=== PATIENT | male | born 1985 | race American Indian/Alaskan Native ===

== ENCOUNTER 2019-02-11 19:35 | Observation (INO) | payer SELFPAY ==
[2019-02-11] MEDS ORDERED: Ketorolac 30 MG/ML SDV IVPUSH ONE (20:24)
[2019-02-11] MEDS ORDERED: Sodium Chloride 0.9% 1,000 ML IV ONE ×2 (20:24→22:42)
[2019-02-11] MEDS ORDERED: Morphine 2 MG/ML Syringe IVPUSH ONE (20:33)
[2019-02-11] MEDS ORDERED: Ondansetron 4 MG/2 ML SDV IVPUSH ONE (20:42)
--- NOTE | 2019-02-11 20:42 | EDM.PDOC ---
ED HPI GENERAL MEDICAL PROBLEM - General Chief Complaint: Abdominal Pain Stated Complaint: PT HAS STOMACH PAINS Time Seen by Provider: 02/11/19 19:58 Source of Information: Reports: Patient History Limitations: Reports: No Limitations - History of Present Illness INITIAL COMMENTS - FREE TEXT/NARRATIVE: HISTORY AND PHYSICAL: History of present illness: Patient is a 33-year-old male presents to the ED today with concern of mid to lower abdominal pain 2-3 days. Patient states he's had bouts of pancreatitis in the past due to alcohol intake. Patient states he has not had a pancreatic attack in several years. Patient states his pain today is somewhat similar to his pancreatic attacks but is more painful in severity. Patient states for the past 2 days he has not been able to eat and drink. He states he continues to try but vomits anytime he does try to intake any fluids or food. Patient rates his discomfort a 9 out of 10. Patient states he has not been able to keep anything down for his symptoms. Patient denies any other symptoms or concerns at this time. Patient denies fever, chills, chest pain, shortness of breath, or cough. Denies headache, neck stiff ness, change in vision, syncope, or near syncope. Denies diarrhea, constipation, or dysuria. Has not noted any blood in urine or stool. Review of systems: As per history of present illness and below otherwise all systems reviewed and negative. Past medical history: As per history of present illness and as reviewed below otherwise noncontributory. Surgical history: As per history of present illness and as reviewed below otherwise noncontributory. Social history: See social history for further information Family history: As per history of present illness and as reviewed below otherwise noncontributory. Physical exam: General: Patient is alert, oriented, and in no acute distress. Patient sitting comfortably on exam table. HEENT: Atraumatic, normocephalic, pupils equal and reactive bilaterally, negative for conjunctival pallor or scleral icterus, mucous membranes dry, TMs normal bilaterally, throat clear, neck supple, nontender, trachea midline. No drooling or trismus noted. No meningeal signs. No hot potato voice noted. Lungs: Clear to auscultation, breath sounds equal bilaterally, chest nontender. Heart: S1S2, regular rate and rhythm without overt murmur Abdomen: Exam of abdomen is limited due to pain. Severe pain with palpation of the mid abdomen and lower abdomen with guarding. Obese, Soft, nondistended. Negative for masses or hepatosplenomegaly. Negative for costovertebral tenderness. Pelvis: Stable nontender. Genitourinary: Deferred. Rectal: Deferred. Skin: Intact, warm, dry. No lesions or rashes noted. Extremities: Atraumatic, negative for cords or calf pain. Neurovascular unremarkable. Neuro: Awake, alert, oriented. Cranial nerves II through XII unremarkable. Cerebellum unremarkable. Motor and sensory unremarkable throughout. Exam nonfocal. Notes: Dr. Fonseca verbally involved in patient care. Dr. Aguilar consult on patient and will admit to observation. Voices understanding and is agreeable to plan of care. Denies any further questions or concerns at this time. Diagnostics: CBC, CMP, UA, lipase, amylase, abdominal pelvic CT, EKG, Ammonia, PT/INR Therapeutics: Normal saline, morphine, Toradol, Zofran, Ativan Impression: Abdominal pain Elevated bilirubin cannot r/o stone Transaminitis, unspecified Proteinuria, unspecified Renal insufficiency, unspecified Plan: 1. Admit to observation to Dr. Aguilar. Definitive disposition and diagnosis as appropriate pending reevaluation and review of above. abdomen Pain Score (Numeric/FACES): 7 - Related Data Allergies Allergy/AdvReac Type Severity Reaction Status Date / Time No Known Allergies Allergy Verified 02/11/19 20:21 Home Meds: Home Meds Lisinopril 5 mg PO DAILY 03/14/18 [History] Insulin Aspart [NovoLOG] 30 unit SQ TIDAC 02/11/19 [History] Insulin Detemir [Levemir] 40 unit SUBCUT BID 02/11/19 [History] Past Medical History HEENT History: Reports: Impaired Vision Cardiovascular History: Reports: None Respiratory History: Reports: None Gastrointestinal History: Reports: Pancreatitis, Other (See Below) Other Gastrointestinal History: liver damage Genitourinary History: Reports: None Musculoskeletal History: Reports: None Neurological History: Reports: None Psychiatric History: Reports: None Endocrine/Metabolic History: Reports: Diabetes, Type II Hematologic History: Reports: None Immunologic History: Reports: None Oncologic (Cancer) History: Reports: None Dermatologic History: Reports: None - Infectious Disease History Infectious Disease History: Reports: Chicken Pox - Past Surgical History Head Surgeries/Procedures: Reports: None HEENT Surgical History: Reports: None Cardiovascular Surgical History: Reports: None Respiratory Surgical History: Reports: None GI Surgical History: Reports: None Male Surgical History: Reports: None Endocrine Surgical History: Reports: None Neurological Surgical History: Reports: None Musculoskeletal Surgical History: Reports: None Oncologic Surgical History: Reports: None Dermatological Surgical History: Reports: None Social & Family History - Family History Family Medical History: Noncontributory - Caffeine Use Caffeine Use: Reports: None ED ROS GENERAL - Review of Systems Review Of Systems: ROS reveals no pertinent complaints other than HPI. ED EXAM, GENERAL - Physical Exam Exam: See Below (See dictation) Course - Vital Signs Last Recorded V/S: Last Vital Signs Temp 35.7 C 02/11/19 20:13 Pulse 94 02/11/19 23:09 Resp 20 02/11/19 23:09 BP 129/72 02/11/19 23:09 Pulse Ox 96 02/11/19 23:09 - Orders/Labs/Meds Orders: Active Orders 24 hr Category Date Time Status Admission Status [Patient Status] [ADT] Stat ADT 02/12/19 00:00 Ordered EKG Documentation Completion [RC] STAT Care 02/11/19 20:33 Active CULTURE URINE [RM] Stat Lab 02/11/19 20:45 Received Labs: Laboratory Tests 02/11/19 02/11/19 02/11/19 Range/Units 20:45 21:00 21:00 WBC 9.88 (4.0-11.0) K/uL RBC 5.60 (4.50-5.90) M/uL Hgb 18.1 H (13.0-17.0) g/dL Hct 51.5 H (38.0-50.0) % MCV 92.0 (80.0-98.0) fL MCH 32.3 H (27.0-32.0) pg MCHC 35.1 (31.0-37.0) g/dL RDW Std Deviation 44.0 (28.0-62.0) fl RDW Coeff of Juan Carlos 13 (11.0-15.0) % Plt Count 257 (150-400) K/uL MPV 10.00 (7.40-12.00) fL Neut % (Auto) 81.4 H (48.0-80.0) % Lymph % (Auto) 13.0 L (16.0-40.0) % [place] % (Auto) 4.9 (0.0-15.0) % Eos % (Auto) 0.1 (0.0-7.0) % Baso % (Auto) 0.6 (0.0-1.5) % Neut # (Auto) 8.1 H (1.4-5.7) K/uL Lymph # (Auto) 1.3 (0.6-2.4) K/uL Warrick # (Auto) 0.5 (0.0-0.8) K/uL Eos # (Auto) 0.0 (0.0-0.7) K/uL Baso # (Auto) 0.1 (0.0-0.1) K/uL Nucleated RBC % 0.0 /100WBC Nucleated RBCs # 0 K/uL INR Sodium 138 (136-148) mmol/L Potassium 4.9 (3.5-5.1) mmol/L Chloride 95 L (98-107) mmol/L Carbon Dioxide 23.9 (21.0-32.0) mmol/L BUN 8 (7.0-18.0) mg/dL Creatinine 1.6 H (0.8-1.3) mg/dL Est Cr Clr Drug Dosing 75.64 mL/min Estimated GFR (MDRD) 49.7 ml/min Glucose 299 H (74-106) mg/dL Calcium 9.5 (8.5-10.1) mg/dL Total Bilirubin 1.3 H (0.2-1.0) mg/dL AST 170 H (15-37) IU/L ALT 210 H (14-63) IU/L Alkaline Phosphatase 142 H (46-116) U/L Ammonia (19-54) ug/dL Total Protein 9.1 H (6.4-8.2) g/dL Albumin 4.2 (3.4-5.0) g/dL Globulin 4.9 H (2.6-4.0) g/dL Albumin/Globulin Ratio 0.9 (0.9-1.6) Amylase (25-115) U/L Lipase 67 L (73-393) U/L Urine Color YELLOW Urine Appearance CLEAR Urine pH 6.0 (5.0-8.0) Ur Specific [place] >= 1.030 (1.001-1.035) Urine Protein >=300 H (NEGATIVE) mg/dL Urine Glucose (UA) 100 H (NEGATIVE) mg/dL Urine Ketones 15 H (NEGATIVE) mg/dL Urine Occult Blood TRACE-LYSED H (NEGATIVE) Urine Nitrite POSITIVE H (NEGATIVE) Urine Bilirubin MODERATE H (NEGATIVE) Urine Ictotest NEGATIVE Urine Urobilinogen 1.0 (<2.0) EU/dL Ur Leukocyte Esterase NEGATIVE (NEGATIVE) Urine RBC 1-2 (0-2/HPF) Urine WBC 0-1 (0-5/HPF) Ur Epithelial Cells RARE (NONE-FEW) Urine Bacteria FEW (NEGATIVE) 02/11/19 02/11/19 02/11/19 Range/Units 21:00 21:00 23:20 WBC (4.0-11.0) K/uL RBC (4.50-5.90) M/uL Hgb (13.0-17.0) g/dL Hct (38.0-50.0) % MCV (80.0-98.0) fL MCH (27.0-32.0) pg MCHC (31.0-37.0) g/dL RDW Std Deviation (28.0-62.0) fl RDW Coeff of Juan Carlos (11.0-15.0) % Plt Count (150-400) K/uL MPV (7.40-12.00) fL Neut % (Auto) (48.0-80.0) % Lymph % (Auto) (16.0-40.0) % [place] % (Auto) (0.0-15.0) % Eos % (Auto) (0.0-7.0) % Baso % (Auto) (0.0-1.5) % Neut # (Auto) (1.4-5.7) K/uL Lymph # (Auto) (0.6-2.4) K/uL Warrick # (Auto) (0.0-0.8) K/uL Eos # (Auto) (0.0-0.7) K/uL Baso # (Auto) (0.0-0.1) K/uL Nucleated RBC % /100WBC Nucleated RBCs # K/uL INR 1.00 Sodium (136-148) mmol/L Potassium (3.5-5.1) mmol/L Chloride (98-107) mmol/L Carbon Dioxide (21.0-32.0) mmol/L BUN (7.0-18.0) mg/dL Creatinine (0.8-1.3) mg/dL Est Cr Clr Drug Dosing mL/min Estimated GFR (MDRD) ml/min Glucose (74-106) mg/dL Calcium (8.5-10.1) mg/dL Total Bilirubin (0.2-1.0) mg/dL AST (15-37) IU/L ALT (14-63) IU/L Alkaline Phosphatase (46-116) U/L Ammonia 53 (19-54) ug/dL Total Protein (6.4-8.2) g/dL Albumin (3.4-5.0) g/dL Globulin (2.6-4.0) g/dL Albumin/Globulin Ratio (0.9-1.6) Amylase 18 L (25-115) U/L Lipase (73-393) U/L Urine Color Urine Appearance Urine pH (5.0-8.0) Ur Specific [place] (1.001-1.035) Urine Protein (NEGATIVE) mg/dL Urine Glucose (UA) (NEGATIVE) mg/dL Urine Ketones (NEGATIVE) mg/dL Urine Occult Blood (NEGATIVE) Urine Nitrite (NEGATIVE) Urine Bilirubin (NEGATIVE) Urine Ictotest Urine Urobilinogen (<2.0) EU/dL Ur Leukocyte Esterase (NEGATIVE) Urine RBC (0-2/HPF) Urine WBC (0-5/HPF) Ur Epithelial Cells (NONE-FEW) Urine Bacteria (NEGATIVE) Meds: Medications Discontinued Medications Generic Name Dose Route Start Last Admin Trade Name Freq PRN Reason Stop Dose Admin Sodium Chloride 1,000 mls @ 999 mls/hr 02/11/19 20:24 02/11/19 21:02 Normal Saline IV 02/11/19 21:24 999 mls/hr BOLUS ONE Administration Sodium Chloride 1,000 mls @ 999 mls/hr 02/11/19 22:42 02/11/19 22:43 Normal Saline IV 02/11/19 23:42 999 mls/hr .Bolus ONE Administration Ketorolac Tromethamine 30 mg 02/11/19 20:24 02/11/19 21:02 Toradol IVPUSH 02/11/19 20:25 30 mg ONETIME ONE Administration Lorazepam 1 mg 02/11/19 21:56 02/11/19 22:07 Ativan IVPUSH 02/11/19 21:57 1 mg ONETIME ONE Administration Morphine Sulfate 2 mg 02/11/19 20:33 02/11/19 21:03 Morphine IVPUSH 02/11/19 20:34 2 mg ONETIME ONE Administration Ondansetron HCl 4 mg 02/11/19 20:42 02/11/19 21:03 Zofran IVPUSH 02/11/19 20:43 4 mg ONETIME ONE Administration Departure - Departure Time of Disposition: 00:08 Disposition: Home, Self-Care 01 Clinical Impression: Elevated bilirubin, Transaminitis, Renal insufficiency Abdominal pain Qualifiers: Abdominal location: unspecified location Qualified Code(s): R10.9 - Unspecified abdominal pain Proteinuria Qualifiers: Proteinuria type: unspecified Qualified Code(s): R80.9 - Proteinuria, unspecified - Discharge Information - My Orders Last 24 Hours: My Active Orders 02/11/19 20:33 EKG Documentation Completion [RC] STAT 02/11/19 20:45 CULTURE URINE [RM] Stat 02/12/19 00:00 Admission Status [Patient Status] [ADT] Stat - Assessment/Plan Last 24 Hours: My Active Orders 02/11/19 20:33 EKG Documentation Completion [RC] STAT 02/11/19 20:45 CULTURE URINE [RM] Stat 02/12/19 00:00 Admission Status [Patient Status] [ADT] Stat
[2019-02-11] MEDS ORDERED: LORazepam 2 MG/ML SDV IVPUSH ONE (21:56)
--- NOTE | 2019-02-11 23:03 | CT ---
INDICATION: Abdominal pain TECHNIQUE: CT abdomen and pelvis without contrast. COMPARISON: None. FINDINGS: Lower chest: Unremarkable. Liver: Diffusely decreased density of the liver consistent with fatty infiltration with focal sparing adjacent to the gallbladder fossa. Gallbladder and bile ducts: No stones or inflammation. No biliary dilatation. Pancreas: Unremarkable. No mass or inflammation. Spleen: Normal in size. No masses. Adrenal glands: Normal in size. No nodules. Kidneys: Normal in size. No masses, stones, or hydronephrosis. GI tract: The stomach is unremarkable. There are no dilated loops of large or small intestine. Appendix is normal in caliber without periappendiceal inflammation. Vasculature: Unremarkable. Pelvis: Unremarkable. No pelvic masses. Bones: Unremarkable for age. IMPRESSION: 1. No evidence of nephrolithiasis or hydronephrosis. 2. No dilated bowel or focal inflammation. 3. Fatty infiltration of the liver. Please note that all CT scans at this facility use dose modulation, iterative reconstruction, and/or weight-based dosing when appropriate to reduce radiation dose to as low as reasonably achievable. Dictated by Javy Lo MD @ Feb 11 2019 10:57PM Signed by Dr. Javy Lo @ Feb 11 2019 11:02PM
[2019-02-12] MEDS ORDERED: Ondansetron 4 MG/2 ML SDV IVPUSH PRN (00:50)
[2019-02-12] MEDS ORDERED: Morphine 2 MG/ML Syringe IVPUSH PRN (00:51)
[2019-02-12] MEDS ORDERED: Pantoprazole 40 MG in Sodium Chloride 0.9% 10 ML IVPUSH SCH ×4 (01:00)
[2019-02-12] MEDS: Sodium Chloride 0.9% 1,000 ML IV SCH ×2 (01:06→08:26)
[2019-02-12] MEDS ORDERED: Insulin Aspart 100 Units/ML 3 ML Pen SUBCUT SCH ×3 (06:00→11:30)
[2019-02-12 06:51] LABS: CHLORIDE,CL 102 mmol/L (98-107); SODIUM,NA 140 mmol/L (136-148)
[2019-02-12] MEDS: Insulin Aspart 100 Units/ML 3 ML Pen SUBCUT SCH ×3 (08:45→17:50)
[2019-02-12] MEDS ORDERED: Insulin Detemir 100 Units/ML 3 ML Pen SUBCUT SCH (09:00)
--- NOTE | 2019-02-12 13:38 | PCM.HP ---
H&P History of Present Illness - General Date of Service: 02/12/19 Admit Problem/Dx: Admission Diagnosis/Problem Admission Diagnosis/Problem Elevated liver enzymes - History of Present Illness Initial Comments - Free Text/Narative: 33 yo male with pmh of diabetes and alcoholic pancreatitis who presents with abdominal pain. Patient reports three day hsitory of epigastric abdominal pain, nausea and vomiting, It started after several days of heavy drinking. Patient reports on weekends he drinks 3/4 a liter of vodka and 8 beers a day. Days he is working he stats he does not drink. Patient reports if goes beyond 2 days of drinking he develops abdominal pain. CT of the abdomen reports fatty liver disease but no acute pathology. His lipase was 67, He had minimally elevated LFTs. abdomen Pain Score (Numeric/FACES): 4 - Related Data Allergies/Adverse Reactions: Allergies Allergy/AdvReac Type Severity Reaction Status Date / Time No Known Allergies Allergy Verified 02/11/19 20:21 Home Medications: Home Meds Lisinopril 5 mg PO DAILY 03/14/18 [History] Insulin Aspart [NovoLOG] 30 unit SQ TIDAC 02/11/19 [History] Insulin Detemir [Levemir] 40 unit SUBCUT BID 02/11/19 [History] Omeprazole Magnesium [Prilosec Otc] 20 mg PO DAILY #30 tablet. 02/12/19 [Rx] cephALEXin [Keflex] 500 mg PO BID #10 cap 02/12/19 [Rx] Past Medical History HEENT History: Reports: Impaired Vision Cardiovascular History: Reports: None Respiratory History: Reports: None Gastrointestinal History: Reports: Pancreatitis, Other (See Below) Other Gastrointestinal History: liver damage Genitourinary History: Reports: None Musculoskeletal History: Reports: None Neurological History: Reports: None Psychiatric History: Reports: None Endocrine/Metabolic History: Reports: Diabetes, Type II Other Endocrine/Metabolic History: on insulin Hematologic History: Reports: None Immunologic History: Reports: None Oncologic (Cancer) History: Reports: None Dermatologic History: Reports: None - Infectious Disease History Infectious Disease History: Reports: Chicken Pox - Past Surgical History Head Surgeries/Procedures: Reports: None HEENT Surgical History: Reports: None Cardiovascular Surgical History: Reports: None Respiratory Surgical History: Reports: None GI Surgical History: Reports: None Male Surgical History: Reports: None Endocrine Surgical History: Reports: None Neurological Surgical History: Reports: None Musculoskeletal Surgical History: Reports: None Oncologic Surgical History: Reports: None Dermatological Surgical History: Reports: None Social & Family History - Family History Family Medical History: Noncontributory - Tobacco Use Smoking Status *Q: Former Smoker Used Tobacco, but Quit: Yes Month/Year Tobacco Last Used: Jul 2018 Second Hand Smoke Exposure: Yes - Caffeine Use Caffeine Use: Reports: Energy Drinks - Alcohol Use Date of Last Drink: 02/09/19 - Recreational Drug Use Recreational Drug Use: No H&P Review of Systems - Review of Systems: Review Of Systems: ROS reveals no pertinent complaints other than HPI. Exam - Exam Exam: See Below - Vital Signs Vital Signs: Last Vital Signs Temp 36.5 C 02/12/19 12:47 Pulse 79 02/12/19 12:47 Resp 14 02/12/19 12:47 BP 124/79 02/12/19 12:47 Pulse Ox 96 02/12/19 12:47 Weight: 123.547 kg - Exam General: Alert, Oriented HEENT: Mucosa Moist & [place] Neck: Supple Lungs: Clear to Auscultation GI/Abdominal Exam: Normal Bowel Sounds, Soft, Non-Tender, No Distention Extremities: Non-Tender, No Pedal Edema Skin: Warm, Dry, Intact - Patient Data Lab Results Last 24 hrs: Laboratory Results - last 24 hr 02/11/19 02/11/19 02/11/19 Range/Units 20:45 21:00 21:00 WBC 9.88 (4.0-11.0) K/uL RBC 5.60 (4.50-5.90) M/uL Hgb 18.1 H (13.0-17.0) g/dL Hct 51.5 H (38.0-50.0) % MCV 92.0 (80.0-98.0) fL MCH 32.3 H (27.0-32.0) pg MCHC 35.1 (31.0-37.0) g/dL RDW Std Deviation 44.0 (28.0-62.0) fl RDW Coeff of [place] 13 (11.0-15.0) % Plt Count 257 (150-400) K/uL MPV 10.00 (7.40-12.00) fL Neut % (Auto) 81.4 H (48.0-80.0) % Lymph % (Auto) 13.0 L (16.0-40.0) % [place] % (Auto) 4.9 (0.0-15.0) % Eos % (Auto) 0.1 (0.0-7.0) % Baso % (Auto) 0.6 (0.0-1.5) % Neut # (Auto) 8.1 H (1.4-5.7) K/uL Lymph # (Auto) 1.3 (0.6-2.4) K/uL [place] # (Auto) 0.5 (0.0-0.8) K/uL Eos # (Auto) 0.0 (0.0-0.7) K/uL Baso # (Auto) 0.1 (0.0-0.1) K/uL Nucleated RBC % 0.0 /100WBC Nucleated RBCs # 0 K/uL INR Sodium 138 (136-148) mmol/L Potassium 4.9 (3.5-5.1) mmol/L Chloride 95 L (98-107) mmol/L Carbon Dioxide 23.9 (21.0-32.0) mmol/L BUN 8 (7.0-18.0) mg/dL Creatinine 1.6 H (0.8-1.3) mg/dL Est Cr Clr Drug Dosing 75.64 mL/min Estimated GFR (MDRD) 49.7 ml/min Glucose 299 H (74-106) mg/dL POC Glucose (60-110) mg/dL Calcium 9.5 (8.5-10.1) mg/dL Total Bilirubin 1.3 H (0.2-1.0) mg/dL AST 170 H (15-37) IU/L ALT 210 H (14-63) IU/L Alkaline Phosphatase 142 H (46-116) U/L Ammonia (19-54) ug/dL Total Protein 9.1 H (6.4-8.2) g/dL Albumin 4.2 (3.4-5.0) g/dL Globulin 4.9 H (2.6-4.0) g/dL Albumin/Globulin Ratio 0.9 (0.9-1.6) Amylase (25-115) U/L Lipase 67 L (73-393) U/L Urine Color YELLOW Urine Appearance CLEAR Urine pH 6.0 (5.0-8.0) Ur Specific [place] >= 1.030 (1.001-1.035) Urine Protein >=300 H (NEGATIVE) mg/dL Urine Glucose (UA) 100 H (NEGATIVE) mg/dL Urine Ketones 15 H (NEGATIVE) mg/dL Urine Occult Blood TRACE-LYSED H (NEGATIVE) Urine Nitrite POSITIVE H (NEGATIVE) Urine Bilirubin MODERATE H (NEGATIVE) Urine Ictotest NEGATIVE Urine Urobilinogen 1.0 (<2.0) EU/dL Ur Leukocyte Esterase NEGATIVE (NEGATIVE) Urine RBC 1-2 (0-2/HPF) Urine WBC 0-1 (0-5/HPF) Ur Epithelial Cells RARE (NONE-FEW) Urine Bacteria FEW (NEGATIVE) 02/11/19 02/11/19 02/11/19 Range/Units 21:00 21:00 23:20 WBC (4.0-11.0) K/uL RBC (4.50-5.90) M/uL Hgb (13.0-17.0) g/dL Hct (38.0-50.0) % MCV (80.0-98.0) fL MCH (27.0-32.0) pg MCHC (31.0-37.0) g/dL RDW Std Deviation (28.0-62.0) fl RDW Coeff of [place] (11.0-15.0) % Plt Count (150-400) K/uL MPV (7.40-12.00) fL Neut % (Auto) (48.0-80.0) % Lymph % (Auto) (16.0-40.0) % [place] % (Auto) (0.0-15.0) % Eos % (Auto) (0.0-7.0) % Baso % (Auto) (0.0-1.5) % Neut # (Auto) (1.4-5.7) K/uL Lymph # (Auto) (0.6-2.4) K/uL [place] # (Auto) (0.0-0.8) K/uL Eos # (Auto) (0.0-0.7) K/uL Baso # (Auto) (0.0-0.1) K/uL Nucleated RBC % /100WBC Nucleated RBCs # K/uL INR 1.00 Sodium (136-148) mmol/L Potassium (3.5-5.1) mmol/L Chloride (98-107) mmol/L Carbon Dioxide (21.0-32.0) mmol/L BUN (7.0-18.0) mg/dL Creatinine (0.8-1.3) mg/dL Est Cr Clr Drug Dosing mL/min Estimated GFR (MDRD) ml/min Glucose (74-106) mg/dL POC Glucose (60-110) mg/dL Calcium (8.5-10.1) mg/dL Total Bilirubin (0.2-1.0) mg/dL AST (15-37) IU/L ALT (14-63) IU/L Alkaline Phosphatase (46-116) U/L Ammonia 53 (19-54) ug/dL Total Protein (6.4-8.2) g/dL Albumin (3.4-5.0) g/dL Globulin (2.6-4.0) g/dL Albumin/Globulin Ratio (0.9-1.6) Amylase 18 L (25-115) U/L Lipase (73-393) U/L Urine Color Urine Appearance Urine pH (5.0-8.0) Ur Specific [place] (1.001-1.035) Urine Protein (NEGATIVE) mg/dL Urine Glucose (UA) (NEGATIVE) mg/dL Urine Ketones (NEGATIVE) mg/dL Urine Occult Blood (NEGATIVE) Urine Nitrite (NEGATIVE) Urine Bilirubin (NEGATIVE) Urine Ictotest Urine Urobilinogen (<2.0) EU/dL Ur Leukocyte Esterase (NEGATIVE) Urine RBC (0-2/HPF) Urine WBC (0-5/HPF) Ur Epithelial Cells (NONE-FEW) Urine Bacteria (NEGATIVE) 02/12/19 02/12/19 02/12/19 Range/Units 05:52 05:52 06:24 WBC 6.34 (4.0-11.0) K/uL RBC 4.56 (4.50-5.90) M/uL Hgb 14.1 (13.0-17.0) g/dL Hct 42.6 (38.0-50.0) % MCV 93.4 (80.0-98.0) fL MCH 30.9 (27.0-32.0) pg MCHC 33.1 (31.0-37.0) g/dL RDW Std Deviation 45.2 (28.0-62.0) fl RDW Coeff of [place] 13 (11.0-15.0) % Plt Count 174 (150-400) K/uL MPV 10.10 (7.40-12.00) fL Neut % (Auto) 55.2 (48.0-80.0) % Lymph % (Auto) 34.5 (16.0-40.0) % [place] % (Auto) 8.7 (0.0-15.0) % Eos % (Auto) 1.1 (0.0-7.0) % Baso % (Auto) 0.5 (0.0-1.5) % Neut # (Auto) 3.5 (1.4-5.7) K/uL Lymph # (Auto) 2.2 (0.6-2.4) K/uL [place] # (Auto) 0.6 (0.0-0.8) K/uL Eos # (Auto) 0.1 (0.0-0.7) K/uL Baso # (Auto) 0.0 (0.0-0.1) K/uL Nucleated RBC % 0.0 /100WBC Nucleated RBCs # 0 K/uL INR Sodium 140 (136-148) mmol/L Potassium 4.2 (3.5-5.1) mmol/L Chloride 102 (98-107) mmol/L Carbon Dioxide 26.7 (21.0-32.0) mmol/L BUN 11 (7.0-18.0) mg/dL Creatinine 1.3 (0.8-1.3) mg/dL Est Cr Clr Drug Dosing 93.09 mL/min Estimated GFR (MDRD) > 60.0 ml/min Glucose 231 H (74-106) mg/dL POC Glucose 205 H (60-110) mg/dL Calcium 8.1 L (8.5-10.1) mg/dL Total Bilirubin 1.1 H (0.2-1.0) mg/dL AST 113 H (15-37) IU/L ALT 152 H (14-63) IU/L Alkaline Phosphatase 99 (46-116) U/L Ammonia (19-54) ug/dL Total Protein 6.8 (6.4-8.2) g/dL Albumin 3.1 L (3.4-5.0) g/dL Globulin 3.7 (2.6-4.0) g/dL Albumin/Globulin Ratio 0.8 L (0.9-1.6) Amylase (25-115) U/L Lipase (73-393) U/L Urine Color Urine Appearance Urine pH (5.0-8.0) Ur Specific [place] (1.001-1.035) Urine Protein (NEGATIVE) mg/dL Urine Glucose (UA) (NEGATIVE) mg/dL Urine Ketones (NEGATIVE) mg/dL Urine Occult Blood (NEGATIVE) Urine Nitrite (NEGATIVE) Urine Bilirubin (NEGATIVE) Urine Ictotest Urine Urobilinogen (<2.0) EU/dL Ur Leukocyte Esterase (NEGATIVE) Urine RBC (0-2/HPF) Urine WBC (0-5/HPF) Ur Epithelial Cells (NONE-FEW) Urine Bacteria (NEGATIVE) 02/12/19 Range/Units 11:02 WBC (4.0-11.0) K/uL RBC (4.50-5.90) M/uL Hgb (13.0-17.0) g/dL Hct (38.0-50.0) % MCV (80.0-98.0) fL MCH (27.0-32.0) pg MCHC (31.0-37.0) g/dL RDW Std Deviation (28.0-62.0) fl RDW Coeff of [place] (11.0-15.0) % Plt Count (150-400) K/uL MPV (7.40-12.00) fL Neut % (Auto) (48.0-80.0) % Lymph % (Auto) (16.0-40.0) % [place] % (Auto) (0.0-15.0) % Eos % (Auto) (0.0-7.0) % Baso % (Auto) (0.0-1.5) % Neut # (Auto) (1.4-5.7) K/uL Lymph # (Auto) (0.6-2.4) K/uL [place] # (Auto) (0.0-0.8) K/uL Eos # (Auto) (0.0-0.7) K/uL Baso # (Auto) (0.0-0.1) K/uL Nucleated RBC % /100WBC Nucleated RBCs # K/uL INR Sodium (136-148) mmol/L Potassium (3.5-5.1) mmol/L Chloride (98-107) mmol/L Carbon Dioxide (21.0-32.0) mmol/L BUN (7.0-18.0) mg/dL Creatinine (0.8-1.3) mg/dL Est Cr Clr Drug Dosing mL/min Estimated GFR (MDRD) ml/min Glucose (74-106) mg/dL POC Glucose 231 H (60-110) mg/dL Calcium (8.5-10.1) mg/dL Total Bilirubin (0.2-1.0) mg/dL AST (15-37) IU/L ALT (14-63) IU/L Alkaline Phosphatase (46-116) U/L Ammonia (19-54) ug/dL Total Protein (6.4-8.2) g/dL Albumin (3.4-5.0) g/dL Globulin (2.6-4.0) g/dL Albumin/Globulin Ratio (0.9-1.6) Amylase (25-115) U/L Lipase (73-393) U/L Urine Color Urine Appearance Urine pH (5.0-8.0) Ur Specific [place] (1.001-1.035) Urine Protein (NEGATIVE) mg/dL Urine Glucose (UA) (NEGATIVE) mg/dL Urine Ketones (NEGATIVE) mg/dL Urine Occult Blood (NEGATIVE) Urine Nitrite (NEGATIVE) Urine Bilirubin (NEGATIVE) Urine Ictotest Urine Urobilinogen (<2.0) EU/dL Ur Leukocyte Esterase (NEGATIVE) Urine RBC (0-2/HPF) Urine WBC (0-5/HPF) Ur Epithelial Cells (NONE-FEW) Urine Bacteria (NEGATIVE) Result Diagrams: 02/12/19 05:52 02/12/19 05:52 Problem List Initiated/Reviewed/Updated: Yes Orders Last 24hrs: Active Orders 24 hr Category Date Time Status Admission Status [Patient Status] [ADT] Stat ADT 02/12/19 00:00 Active Accu Check [Blood Glucose Check, Bedside] [RC] TIDAC Care 02/12/19 06:43 Active Blood Glucose Check, Bedside [RC] Q6H Care 02/12/19 06:00 Inactive [place] [employer] Diet [DIET] Diet 02/12/19 Breakfast Active NPO Now [Nothing per Oral Now Diet] [DIET] Diet 02/12/19 Lunch Active Abdomen Ltd [US] Routine Exams 02/12/19 08:25 Ordered CULTURE URINE [RM] Stat Lab 02/11/19 20:45 Received UA W/MICROSCOPIC [URIN] Routine Lab 02/12/19 13:30 Ordered Folic Acid Med 02/12/19 13:30 Once 1 mg PO ONETIME ONE Insulin Aspart [NovoLOG] Med 02/12/19 08:14 Active See Protocol SUBCUT TIDAC Insulin Detemir [Levemir] Med 02/12/19 09:00 Active 0 unit SUBCUT BID Morphine Med 02/12/19 00:51 Active 2 mg IVPUSH Q3H PRN Ondansetron [Zofran] Med 02/12/19 00:50 Active 4 mg IVPUSH Q3H PRN Pantoprazole [ProTONIX IV] 40 mg Med 02/12/19 01:00 Active Sodium Chloride 0.9% [Normal Saline] 10 ml IVPUSH Q24H Sodium Chloride 0.9% [Normal Saline] 1,000 ml Med 02/12/19 01:00 Active IV ASDIRECTED Thiamine [Vitamin B-1] Med 02/12/19 13:30 Once 100 mg PO ONETIME ONE Medication Orders Folic Acid (Folic Acid) 1 mg PO ONETIME ONE Stop: 02/12/19 13:31 Sodium Chloride (Normal Saline) 1,000 mls @ 125 mls/hr IV ASDIRECTED [facility] Last Admin: 02/12/19 08:26 Dose: 125 mls/hr Infusion: 02/12/19 08:26 Dose: 125 mls/hr Admin: 02/12/19 01:06 Dose: 125 mls/hr Pantoprazole Sodium 40 mg/ (Sodium Chloride) 10 mls @ 200 mls/hr IVPUSH Q24H [facility] Last Admin: 02/12/19 08:53 Dose: Insulin Aspart (Novolog) 0 unit SUBCUT TIDAC [facility]; Protocol Last Admin: 02/12/19 08:45 Dose: 6 units Insulin Detemir (Levemir) 0 unit SUBCUT BID [facility] Last Admin: 02/12/19 08:50 Dose: 40 units Morphine Sulfate (Morphine) 2 mg IVPUSH Q3H PRN PRN Reason: Pain (severe 7-10) Ondansetron HCl (Zofran) 4 mg IVPUSH Q3H PRN PRN Reason: Nausea/Vomiting Thiamine HCl (Vitamin B-1) 100 mg PO ONETIME ONE Stop: 02/12/19 13:31 Assessment/Plan Comment:: 33 yo male admitted for alcoholic gastritis. Patient has received IV fluids overnight and is feeling better. We will check liver ultrasound. He was given Rocephin for possible UTI based on urine analysis. Patient is wanting to leave later this evening after ultrasound. We will discharge patient home on oral Protonix. He was instructed to abstain from alcohol. 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 He is to follow up with [facility]. He was discharged with prescriptions for prilosec and Keflex.
[2019-02-12] MEDS ORDERED: Thiamine 100 MG Tab PO ONE (13:40)
[2019-02-12] MEDS ORDERED: Folic Acid 1 MG Tab PO ONE (13:40)
--- NOTE | 2019-02-12 16:22 | US ---
INDICATION: Elevated liver enzymes para. TECHNIQUE: Abdominal ultrasound limited to the right upper quadrant. COMPARISON: CT abdomen and pelvis obtained earlier today. FINDINGS: The liver measures 22.9 centimeters and displays changes of diffuse fatty infiltration. This correlates with CT findings. There is no dilatation of the biliary system. The gallbladder and pancreas are normal. The right kidney measures 12.0 centimeters x 6.6 centimeters x 5.2 centimeters. No hydronephrosis. No free fluid in the right upper quadrant. The visible abdominal aorta is normal in caliber. The inferior vena cava is not well seen. Impression : The liver is enlarged and displays changes of diffuse fatty infiltration. Dictated by Cat Gavin MD @ Feb 12 2019 4:16PM Signed by Dr. Cat Gavin @ Feb 12 2019 4:20PM
== END 2019-02-12 17:45 | disposition home or self-care (01) ==
LOC: MW.ED 19:35 → MW.MS 02-12 → MW.ED 02-12 00:36
PROVIDERS: ADMIT Internal Medicine; ATTEND Internal Medicine
DX: R17 Unspecified jaundice (principal); R74.0 Nonspecific elevation of levels of transaminase and lactic acid dehydrogenase [LDH]; R80.9 Proteinuria, unspecified; N28.9 Disorder of kidney and ureter, unspecified; E11.9 Type 2 diabetes mellitus without complications; Z79.899 Other long term (current) drug therapy; Z79.4 Long term (current) use of insulin; Z87.19 Personal history of other diseases of the digestive system; Z87.891 Personal history of nicotine dependence
CPT/HCPCS: 36415; 74176; 76705; 80053; 81001; 82140; 82150; 82962; 83690; 85025; 85610; 87086; 93005; 96361; 96374; 96375; 99285; A9270; C9113; J1815; J1885; J2060; J2270; J2405; J7040; J7050

== ENCOUNTER 2022-04-03 09:13 | Emergency (ER) | payer SELFPAY ==
[2022-04-03] MEDS ORDERED: Ondansetron 4 MG/2 ML SDV IVPUSH ONE (09:42)
[2022-04-03] MEDS ORDERED: Sodium Chloride 0.9% 2.5 ML Syringe FLUSH PRN (09:42)
[2022-04-03] MEDS ORDERED: Ketorolac 30 MG/ML SDV IVPUSH ONE (09:42)
[2022-04-03] MEDS ORDERED: Sodium Chloride 0.9% 10 ML Syringe FLUSH PRN (09:42)
[2022-04-03 10:29] LABS: CARBON DIOXIDE,CO2 21.1 mmol/L (21.0-32.0); POTASSIUM,K 4.1 mmol/L (3.5-5.1)
[2022-04-03] MEDS ORDERED: LORazepam 2 MG/ML SDV IVPUSH ONE (10:34)
[2022-04-03] MEDS ORDERED: fentaNYL 50 MCG/ML SDV IVPUSH ONE (10:34)
[2022-04-03] MEDS ORDERED: Sodium Chloride 0.9% 1,000 ML IV ONE (10:34)
[2022-04-03] MEDS ORDERED: Pantoprazole 40 MG in Sodium Chloride 0.9% 10 ML IVPUSH ONE (10:34)
[2022-04-03] MEDS ORDERED: Iopamidol 755 MG/ML 500 ML Multipack Bottle IVPUSH STA (11:07)
== END 2022-04-03 14:35 | disposition home or self-care (01) ==
LOC: MW.ED 09:13
DX: K29.20 Alcoholic gastritis without bleeding (principal); K76.0 Fatty (change of) liver, not elsewhere classified; E86.0 Dehydration; E11.9 Type 2 diabetes mellitus without complications; Z79.4 Long term (current) use of insulin; Z79.899 Other long term (current) drug therapy
CPT/HCPCS: 36415; 74177; 76705; 80053; 81001; 83690; 85025; 96361; 96374; 96375; 99284; C9113; J1885; J2060; J2405; J3010; J3490; J7030; Q9967

== ENCOUNTER 2024-05-07 19:59 | Emergency (ER) | payer MEDICAID | END 2024-05-07 20:45 | LOC: MW.ED 19:59 | DX: Z02.89 Encounter for other administrative examinations (principal); E11.69 Type 2 diabetes mellitus with other specified complication; F17.210 Nicotine dependence, cigarettes, uncomplicated; Z79.4 Long term (current) use of insulin; Z75.8 Other problems related to medical facilities and other health care | CPT/HCPCS: 82947; 99282; 99283 ==